=== PATIENT | female | born 1990 | race Two or more races ===

== ENCOUNTER 2018-05-12 07:21 | Emergency (ER) | payer MEDICAID ==
[~2018-05-12] VITALS: Ht 162.6 cm; Wt 65.8 kg
[2018-05-12 07:23] VITALS: BP 105/73
[2018-05-12] MEDS ORDERED: IBUPROFEN600 MG ORAL (07:48)
[2018-05-12] MEDS ORDERED: CYCLOBENZAPRINE10 MG ORAL (07:48)
[2018-05-12] MEDS ORDERED: Cyclobenzaprine 10mg Tab ORAL ONE (08:00)
[2018-05-12] MEDS ORDERED: Ketorolac 60mg Inj IM ONE (08:00)
--- NOTE | 2018-05-12 08:03 | Emergency Room Report ---
History of Present Illness General Chief Complaint: Neck Pain Source: Patient Present Illness HPI Patient is a 28-year-old female presented after increased right-sided neck pain. Patient denies recent trauma. She reports having acute onset of discomfort which began after waking up. Pain was posterior to the right side of the neck. She denies any severe headache. She denies any numbness or weakness. She denies any vertigo sensation. Patient reports of increased pain with right lateral rotation as well as neck flexion. She denies prior episodes. She denies any previous sore throat. Allergies: Coded Allergies: No Known Allergies (Unverified , 05/12/18) Patient History Past Medical History: see triage record Now: No Reviewed Nursing Documentation: PMH: Agreed; PSxH: Agreed Nursing Documentation-PMH Past Medical History: No Stated History Review of Systems All Other Systems: negative except mentioned in HPI Physical Exam Vital Signs Date Time Temp Pulse Resp B/P (MAP) Pulse Ox O2 Delivery O2 Flow Rate FiO2 05/12/18 07:23 98.2 79 17 105/73 99 Room Air General Appearance: well appearing, no apparent distress, alert, GCS 15, non- toxic Head: normocephalic, atraumatic ENT: hearing grossly normal, normal voice Neck: supple, other, tender - tender posterior laterally Respiratory: no respiratory distress, speaking full sentences Cardiovascular #1: normal inspection, normal peripheral pulses, regular rate, rhythm Musculoskeletal: normal inspection, digits/nails normal Neurologic: normal inspection, alert, oriented x3, responsive, cleaner and trimmer III-XII nml as tested, normal gait Psychiatric: mood/affect normal Skin: no rash Medical Decision Making Diagnostic Impression: Primary Impression: Torticollis ER Course Patient presented for neck pain. Differential diagnosis included torticollis, vertebral artery dissection, myocardial infarction, cervical fracture, arthritis , spondylolithises. On exam patient has a benign exam and does not appear to require any laboratory testing at this time. Patient is advised to follow up with primary care doctor in 1-2 days. Patient is advised to return if any worsening condition or if any changes in status that are concerning. This report is dictated with [employer] fitness sales associate software which may occasionally lead to discrepancies related to use of this software. Labs Test 05/12/18 07:49 Last Vital Signs Date Time Temp Pulse Resp B/P (MAP) Pulse Ox O2 Delivery O2 Flow Rate FiO2 05/12/18 07:23 98.2 79 17 105/73 99 Room Air Status: improved Disposition: HOME, SELF-CARE Condition: Stable Scripts Cyclobenzaprine Hcl* (FLEXERIL*) 10 Mg Tablet 10 MG ORAL TID PRN for Muscle Spasm, #20 TAB Prov: Srinivasan Ospina MD 05/12/18 Ibuprofen* (MOTRIN*) 600 Mg Tablet 600 MG ORAL Q8H PRN for For Pain, #30 TAB 0 Refills Prov: Srinivasan Ospina MD 05/12/18 Departure Forms: Return to Work Return to Work in (Days): 4 Patient Instructions: Acute Torticollis Srinivasan Ospina MD May 12, 2018 08:03
[2018-05-12 08:36] VITALS: BP 114/68
--- NOTE | 2018-05-12 08:55 | Diagnostic Imaging Report ---
. Indication: Pain Technique: XRAY Neck Soft Tissue Comparison: None Findings: There is mild straightening of the cervical lordosis without radiographic evidence to suggest spondylolisthesis. No acute fractures identified. No abnormal prevertebral soft tissue thickening. Imaged airway appears patent. No radiopaque foreign body. Imaged lung apices clear. Impression: Unremarkable radiographic examination of the soft tissues the neck.
== END 2018-05-12 08:36 | disposition home or self-care (01) ==
LOC: EMR 08:11
DX: M43.6 Torticollis (principal)
CPT/HCPCS: 70360; 81025; 96372; 99283

== ENCOUNTER 2018-08-01 09:12 | Emergency (ER) | payer MEDICAID ==
[~2018-08-01] VITALS: Ht 160 cm; Wt 63.5 kg
[~2018-08-01 09:12] MED LIST: CYCLOBENZAPRINE10 MG ORAL; IBUPROFEN600 MG ORAL
[2018-08-01] MEDS ORDERED: NKM (09:22)
--- NOTE | 2018-08-01 09:22 | NUR ---
ED Nurse Note: mask provided.
[2018-08-01 09:26] VITALS: BP 117/71
--- NOTE | 2018-08-01 09:30 | Emergency Room Report ---
History of Present Illness General Chief Complaint: Flu Like Symptoms Source: Patient Present Illness HPI Patient is a 28-year-old female presented after increased cough and sore throat for 2 days. Patient reports having onset of symptoms on Thursday. Patient reported having increased body aches and chills. She had nonproductive cough. Patient had been having increased sore throat with difficulty swallowing. She denies any past medical history. She denies vomiting. She reports having fever and chills. She reports having increased lightheadedness. Allergies: Coded Allergies: No Known Allergies (Unverified , 05/12/18) Patient History Past Medical History: see triage record Last Menstrual Period: 07/30/2018 Reviewed Nursing Documentation: PMH: Agreed; PSxH: Agreed Nursing Documentation-PMH Past Medical History: No Stated History Review of Systems All Other Systems: negative except mentioned in HPI Physical Exam Vital Signs Date Time Temp Pulse Resp B/P (MAP) Pulse Ox O2 Delivery O2 Flow Rate FiO2 08/01/18 09:19 99.7 138 20 117/71 94 Room Air Sp02 EP Interpretation: reviewed, normal General Appearance: normal inspection, well appearing, no apparent distress, alert, GCS 15 Head: atraumatic ENT: normal ENT inspection, hearing grossly normal, normal voice Neck: normal inspection, full range of motion, supple, no bony tend Respiratory: normal inspection, lungs clear, normal breath sounds, no respiratory distress, no retraction, no wheezing Cardiovascular #1: regular rate, rhythm, no edema Gastrointestinal: normal inspection, normal bowel sounds, non tender, soft, no guarding, no hernia Genitourinary: no CVA tenderness Musculoskeletal: normal inspection, back normal, normal range of motion Neurologic: normal inspection, alert, oriented x3, responsive, rental sales agent III-XII nml as tested, speech normal Psychiatric: normal inspection, judgement/insight normal, mood/affect normal Skin: normal inspection, normal color, no rash Medical Decision Making Diagnostic Impression: Primary Impression: Influenza A ER Course Patient presented for sore throat. Differential diagnosis include was not limited to influenza, sepsis, abscess, among others. Because of complexity of patient's case laboratory testing and imaging studies were ordered. Patient was noted to be tachycardic as well as having a nonproductive cough. Patient was started on IV fluids. Influenza swab was sent.Influenza study was noted to be positive for influenza A. Patient was given Tamiflu as well as ibuprofen in the emergency department. She started on IV fluids. Patient reported having improvement in her symptoms. Patient appears to be stable for outpatient management. At the time of discharge patient was noted to have normal oxygen saturation did not have any respiratory distress. She stated that she felt better. Patient was discharged home with prescription for Tamiflu as well as for Naprosyn. She is advised to follow-up with primary care physician for recheck and to return if she had any worsening of condition. Labs Test 08/01/18 09:30 08/01/18 10:05 White Blood Count 8.8 K/UL (4.8-10.8) Red Blood Count 5.40 M/UL (4.20-5.40) Hemoglobin 14.3 G/DL (12.0-16.0) Hematocrit 44.1 % (37.0-47.0) Mean Corpuscular Volume 82 FL (80-99) Mean Corpuscular Hemoglobin 26.5 PG (27.0-31.0) Mean Corpuscular Hemoglobin Concent 32.5 G/DL (32.0-36.0) Red Cell Distribution Width 13.9 % (11.6-14.8) Platelet Count 208 K/UL (150-450) Mean Platelet Volume 6.9 FL (6.5-10.1) Neutrophils (%) (Auto) % (45.0-75.0) Lymphocytes (%) (Auto) % (20.0-45.0) Monocytes (%) (Auto) % (1.0-10.0) Eosinophils (%) (Auto) % (0.0-3.0) Basophils (%) (Auto) % (0.0-2.0) Differential Total Cells Counted 100 Neutrophils % (Manual) 88 % (45-75) Lymphocytes % (Manual) 8 % (20-45) Monocytes % (Manual) 4 % (1-10) Eosinophils % (Manual) 0 % (0-3) Basophils % (Manual) 0 % (0-2) Band Neutrophils 0 % (0-8) Platelet Estimate Adequate Platelet Morphology Normal Red Blood Cell Morphology Normal Sodium Level 136 MMOL/L (136-145) Potassium Level 3.4 MMOL/L (3.5-5.1) Chloride Level 101 MMOL/L (98-107) Carbon Dioxide Level 25 MMOL/L (21-32) Anion Gap 10 mmol/L (5-15) Blood Urea Nitrogen 11 mg/dL (7-18) Creatinine 0.9 MG/DL (0.55-1.30) Estimat Glomerular Filtration Rate > 60 mL/min (>60) Glucose Level 122 MG/DL (74-106) Lactic Acid Level 1.70 mmol/L (0.4-2.0) Calcium Level 8.7 MG/DL (8.5-10.1) Total Bilirubin 0.3 MG/DL (0.2-1.0) Aspartate Amino Transf (AST/SGOT) 19 U/L (15-37) Alanine Aminotransferase (ALT/SGPT) 29 U/L (12-78) Alkaline Phosphatase 75 U/L (46-116) Total Creatine Kinase 45 U/L (26-308) Creatine Kinase MB < 0.5 NG/ML (0.0-3.6) Creatine Kinase MB Relative Index 1.1 Troponin I 0.000 ng/mL (0.000-0.056) Total Protein 8.0 G/DL (6.4-8.2) Albumin 4.3 G/DL (3.4-5.0) Globulin 3.7 g/dL Albumin/Globulin Ratio 1.2 (1.0-2.7) Urine Color Yellow Urine Appearance Clear Urine pH 5 (4.5-8.0) Urine Specific [place] 1.015 (1.005-1.035) Urine Protein 1+ (NEGATIVE) Urine Glucose (UA) Negative (NEGATIVE) Urine Ketones 3+ (NEGATIVE) Urine Blood 5+ (NEGATIVE) Urine Nitrite Negative (NEGATIVE) Urine Bilirubin Negative (NEGATIVE) Urine Urobilinogen Normal MG/DL (0.0-1.0) Urine Leukocyte Esterase 1+ (NEGATIVE) Urine RBC 2-4 /HPF (0 - 2) Urine WBC 0-2 /HPF (0 - 2) Urine Squamous Epithelial Cells Few /LPF (NONE/OCC) Urine Bacteria Few /HPF (NONE) Urine Mucus Few /LPF (NONE/OCC) EKG Diagnostic Results Rate: tachycardiac - 130 Rhythm: NSR ST Segments: no acute changes ASA given to the pt in ED: No Rhythm Strip Diag. Results EP Interpretation: yes Rhythm: no PVC's, no ectopy, other - sinus tachycardia Last Vital Signs Date Time Temp Pulse Resp B/P (MAP) Pulse Ox O2 Delivery O2 Flow Rate FiO2 08/01/18 09:19 99.7 138 20 117/71 94 Room Air Status: improved Disposition: HOME, SELF-CARE Condition: Stable Scripts Naproxen* (NAPROXEN*) 375 Mg Tablet.dr 375 MG ORAL TWICE A DAY, #14 TAB Prov: Srinivasan Ospina MD 08/01/18 Oseltamivir Phosphate (Tamiflu) 75 Mg Capsule 75 MG ORAL TWICE A DAY, #9 CAP Prov: Srinivasan Ospina MD 08/01/18 Srinivasan Ospina MD Aug 01, 2018 09:30
[2018-08-01] MEDS ORDERED: Lidocaine 2% Visc 15ml soln ORAL ONE (09:45)
[2018-08-01] MEDS ORDERED: Acetaminophen 500mg (ES) tab ORAL ONE (09:45)
--- NOTE | 2018-08-01 09:49 | NUR ---
ED Nurse Note:pt. came with flu like symptoms, temp 99.7 HR 135, A/Ox4 ambulatory with steady gait, pt. was seen by ER MD, placed on cardiac exercise specialist, blood was sent to labs, given meds and IV fluids
[2018-08-01 09:56] LABS: HEMATOCRIT 44.1 % (37.0-47.0); HEMOGLOBIN 14.3 G/DL (12.0-16.0); MEAN CORPUSCULAR VOLUME 82 FL (80-99); PLATELET COUNT 208 K/UL (150-450); RED CELL DISTRIBUTION WIDTH 13.9 % (11.6-14.8); WHITE BLOOD COUNT 8.8 K/UL (4.8-10.8)
--- NOTE | 2018-08-01 10:09 | NUR ---
ED Nurse Note:urine sent to labs
[2018-08-01 10:12] LABS: ANION GAP 10 mmol/L (5-15); BLOOD UREA NITROGEN 11 mg/dL (7-18); CALCIUM 8.7 MG/DL (8.5-10.1); CARBON DIOXIDE 25 MMOL/L (21-32); CHLORIDE 101 MMOL/L (98-107); CREATININE 0.9 MG/DL (0.55-1.30); POTASSIUM 3.4 MMOL/L (3.5-5.1); SODIUM 136 MMOL/L (136-145)
--- NOTE | 2018-08-01 10:12 | Diagnostic Imaging Report ---
EXAM: XR Chest, 1 View CLINICAL HISTORY: Shortness of breath TECHNIQUE: Frontal view of the chest. COMPARISON: No relevant prior studies available. FINDINGS: Lungs: Subsegmental atelectasis versus infiltrate in the right lung base. The lungs otherwise appear clear. Pleural space: Unremarkable. The costophrenic angles are sharp. No visible pneumothorax. Heart: Unremarkable. No cardiomegaly. Mediastinum: Unremarkable. Bones/joints: Unremarkable. Tubes, lines and devices: EKG lead overlies the right thorax. IMPRESSION: Subsegmental atelectasis versus infiltrate in the right lung base.
[2018-08-01 10:15] LABS: APPEARANCE,URINE CLEAR; BILIRUBIN, URINE NEGATIVE (NEGATIVE); GLUCOSE, URINE (UA) NEGATIVE (NEGATIVE); KETONES,URINE 3+ (NEGATIVE); LEUKOCYTE ESTERASE ,URINE 1+ (NEGATIVE); NITRITE,URINE NEGATIVE (NEGATIVE); PH,URINE 5 (4.5-8.0); PROTEIN,URINE 1+ (NEGATIVE); UROBILINOGEN,URINE NORMAL MG/DL (0.0-1.0)
[2018-08-01] MEDS ORDERED: Oseltamivir 75mg cap ORAL SCH (10:15)
[2018-08-01 10:25] LABS: ALANINE AMINOTRANSFERASE 29 U/L (12-78); ALBUMIN 4.3 G/DL (3.4-5.0); ALBUMIN/GLOBULIN RATIO 1.2 (1.0-2.7); ALKALINE PHOSPHATASE 75 U/L (46-116); ASPARTATE AMINO TRANSFERASE 19 U/L (15-37); BILIRUBIN,TOTAL 0.3 MG/DL (0.2-1.0); CKMB < 0.5 NG/ML (0.0-3.6); CREATINE KINASE 45 U/L (26-308)
[2018-08-01 10:33] VITALS: BP 115/70
[2018-08-01 10:43] LABS: COLOR,URINE YELLOW
--- NOTE | 2018-08-01 10:52 | NUR ---
ED Nurse Note:temp was rechecked, second litr of fluids given , continue monitor
[2018-08-01 11:42] VITALS: BP 113/69
--- NOTE | 2018-08-01 11:43 | NUR ---
ED Nurse Note:rechecked temp-99.2 notified
--- NOTE | 2018-08-01 12:58 | NUR ---
ED Nurse Note: PT. PROVIDED SANDWICH AND JUICE
[2018-08-01] MEDS ORDERED: TAMIFLU75 MG ORAL (13:09)
[2018-08-01] MEDS ORDERED: NAPROXEN375 M2 ORAL (13:09)
[2018-08-01 13:44] VITALS: BP 106/72
--- NOTE | 2018-08-01 13:45 | NUR ---
ER DISCHARGE NOTE: Patient is cleared to be discharged per ERMD, pt is aox4, on room air, with stable vital signs. pt was given dc and prescription instructions, pt was able to verbalize understanding, pt id band and iv site removed without complications. pt is able to ambulate with steady gait. pt took all belongings.
[2018-08-01 14:05] VITALS: BP 106/72
[2018-08-02] MEDS ORDERED: AUGMENTIN 875-1 EAC1 ORAL (21:35)
[2018-08-02] MEDS ORDERED: ZOFRAN4 M1 ORAL (21:35)
[2018-08-02] MEDS ORDERED: IBUPROFEN600 MG ORAL (21:35)
== END 2018-08-01 14:07 | disposition home or self-care (01) ==
LOC: EMR 09:56
DX: J09.X2 Influenza due to identified novel influenza A virus with other respiratory manifestations (principal); R00.0 Tachycardia, unspecified
CPT/HCPCS: 36415; 71045; 80053; 81003; 82550; 82553; 83605; 84484; 85007; 85025; 86710; 87040; 93005; 96360; 99284; J7040; J8499

== ENCOUNTER 2018-08-02 20:23 | Emergency (ER) | payer MEDICAID ==
[~2018-08-02] VITALS: Ht 165.1 cm; Wt 54.4 kg
[~2018-08-02 20:23] MED LIST changes: +NAPROXEN375 M2 ORAL; +NKM; +TAMIFLU75 MG ORAL
--- NOTE | 2018-08-02 21:12 | NUR ---
ED Nurse Note: Pt came in from home due to sorethroat 5/10 ginny and difficulty breathing since Thursday07/31/2018. HR 112 upon arrival SAT 95% RA, ERMD aware. Aox4, other VSS. Will cont to monitor.
[2018-08-02] MEDS ORDERED: Ketorolac 30mg Inj IV ONE (21:15)
[2018-08-02 21:34] VITALS: BP 115/72
[2018-08-02] MEDS ORDERED: ZOFRAN4 M1 ORAL (21:35)
[2018-08-02] MEDS ORDERED: AUGMENTIN 875-1 EAC1 ORAL (21:35)
[2018-08-02] MEDS ORDERED: IBUPROFEN600 MG ORAL (21:35)
[2018-08-02 21:45] VITALS: BP 115/72
[2018-08-02] MEDS ORDERED: Augmentin 875mg Tab ORAL ONE (21:45)
[2018-08-02] MEDS ORDERED: Ketorolac 60mg Inj IM ONE (21:45)
--- NOTE | 2018-08-02 21:45 | NUR ---
ER DISCHARGE NOTE: Patient is cleared to be discharged per ERMD, pt is aox4, on room air, with stable vital signs. pt was given dc and prescription instructions, pt was able to verbalize understanding, pt id band removed. pt is able to ambulate with steady gait. pt took all belongings.
--- NOTE | 2018-08-03 02:35 | Emergency Room Report ---
History of Present Illness General Chief Complaint: Flu Like Symptoms Source: Patient Present Illness HPI Patient was here with daughter who is being seen for right conjunctivitis Patient was here just recently diagnosed with influenza a Patient reported ongoing throat discomfort pain with swallowing patient also complaining of increased nausea and vomiting Denies any posterior neck pain denies any photophobia Denies any diarrhea Allergies: Coded Allergies: No Known Allergies (Unverified , 05/12/18) Patient History Past Medical History: see triage record Pertinent Family History: none Last Menstrual Period: 07/31/18 Now: No : 2 Para: 1 Reviewed Nursing Documentation: PMH: Agreed; PSxH: Agreed Nursing Documentation-PMH Past Medical History: No History, Except For Review of Systems All Other Systems: negative except mentioned in HPI Physical Exam Vital Signs Date Time Temp Pulse Resp B/P (MAP) Pulse Ox O2 Delivery O2 Flow Rate FiO2 08/02/18 20:29 98.2 118 22 113/67 95 Room Air Sp02 EP Interpretation: reviewed, normal General Appearance: no apparent distress Head: normocephalic, atraumatic Eyes: bilateral eye PERRL, bilateral eye EOMI ENT: no angioedema, normal voice, pharyngeal erythema Neck: supple, no meningismus Respiratory: lungs clear, no retraction, no accessory muscle use Cardiovascular #1: regular rate, rhythm Gastrointestinal: non tender, soft Genitourinary: no CVA tenderness Musculoskeletal: normal inspection Neurologic: alert, oriented x3 Psychiatric: normal inspection Skin: normal color Lymphatic: no adenopathy Medical Decision Making Diagnostic Impression: Primary Impression: pharyngitis Additional Impression: influenza ER Course Patient did not appear septic or toxic However given her discomforts given the return visit Given the patient's complaints of vomiting IV hydration along with pain medication were ordered and recommendation for further inpatient evaluation Patient reports that she needs to be home with her daughter and does not want to have the further IV intervention in the ER She was provided with pain medication given the increased erythema of the throat I feel that there is likely a secondary bacterial infection as well Patient added with antibiotics and will have close outpatient follow-up Last Vital Signs Date Time Temp Pulse Resp B/P (MAP) Pulse Ox O2 Delivery O2 Flow Rate FiO2 08/02/18 21:45 98.2 87 20 115/72 96 Room Air Status: improved Disposition: HOME, SELF-CARE Condition: Improved Scripts Ondansetron (Zofran) 4 Mg Tablet 4 MG ORAL Q8HR PRN for Nausea & Vomiting, #12 TAB Prov: Mandeep Rubio DO 08/02/18 Amoxicillin/Potassium Clav 875-125* (AUGMENTIN 875-125 TABLET*) 1 Each Tablet 1 TAB ORAL TWICE A DAY, #14 TAB Prov: Mandeep Rubio DO 08/02/18 Ibuprofen* (MOTRIN*) 600 Mg Tablet 600 MG ORAL Q8H PRN for For Pain, #20 TAB 0 Refills Prov: Mandeep Rubio DO 08/02/18 Referrals: NOT CHOSEN IPA/MD,REFERRING (PCP) Patient Instructions: Influenza, Adult, [id number], Pharyngitis, [id number] Additional Instructions: Patient is provided with the discharge instructions notified to follow up with primary doctor in the next 2-3 days otherwise return to the er with any worsening symptoms. Please note that this report is being documented using [employer] technology. This can lead to erroneous entry secondary to incorrect interpretation by the dictating instrument. Mandeep Rubio DO Aug 03, 2018 02:35
== END 2018-08-02 21:45 | disposition home or self-care (01) ==
LOC: EMR 21:10
DX: J02.9 Acute pharyngitis, unspecified (principal); J11.1 Influenza due to unidentified influenza virus with other respiratory manifestations; R11.10 Vomiting, unspecified
CPT/HCPCS: 96372; 99283

== ENCOUNTER 2020-02-03 15:27 | Emergency (ER) | payer MEDICAID ==
[~2020-02-03] VITALS: Ht 160 cm; Wt 68.0 kg
[~2020-02-03 15:27] MED LIST changes: +AUGMENTIN 875-1 EAC1 ORAL; +ZOFRAN4 M1 ORAL
[2020-02-03 15:50] VITALS: BP 118/74
[2020-02-03 16:03] LABS: APPEARANCE,URINE CLOUDY; BILIRUBIN, URINE NEGATIVE (NEGATIVE); COLOR,URINE PALE YELLOW; GLUCOSE, URINE (UA) NEGATIVE (NEGATIVE); KETONES,URINE NEGATIVE (NEGATIVE); LEUKOCYTE ESTERASE ,URINE 3+ (NEGATIVE); NITRITE,URINE NEGATIVE (NEGATIVE); PH,URINE 6 (4.5-8.0); PROTEIN,URINE 2+ (NEGATIVE); UROBILINOGEN,URINE NORMAL MG/DL (0.0-1.0)
[2020-02-03] MEDS ORDERED: Phenazopyridine 200mg tab ORAL ONE (16:45)
--- NOTE | 2020-02-03 16:50 | Emergency Room Report ---
History of Present Illness General Chief Complaint: Female Urogenital Problems Source: Patient Present Illness HPI 29 YO Female presents to the ED c/o 01/25 in severity lower abdominal pain with hematuria and dysuria x 3 days. Pt. also reports several ingrown hairs in the genital region x 1 week. Pt. denies fevers or chills she denies low back pain. She denies suspicion of . She denies nausea, vomiting, constipation or diarrhea. She denies suspicion of STI. Allergies: Coded Allergies: No Known Allergies (Unverified , 05/12/18) COVID-19 Screening Contact w/high risk pt: No Experienced COVID-19 symptoms?: No COVID-19 Testing performed SOCIAL SCIENCE TEACHER: No Patient History Past Medical History: see triage record Past Surgical History: none Pertinent Family History: none Last Menstrual Period: 01/18 Now: No Reviewed Nursing Documentation: PMH: Agreed; PSxH: Agreed Nursing Documentation-PMH Past Medical History: No Stated History Hx Cardiac Problems: No Hx Hypertension: No Hx Pacemaker: No Hx Asthma: No Hx COPD: No Hx Diabetes: No Hx Cancer: No Hx Gastrointestinal Problems: No Hx Dialysis: No History Of Psychiatric Problem: No Hx Neurological Problems: No Hx Cerebrovascular Accident: No Hx Seizures: No Review of Systems All Other Systems: negative except mentioned in HPI Physical Exam Vital Signs Date Time Temp Pulse Resp B/P (MAP) Pulse Ox O2 Delivery O2 Flow Rate FiO2 02/03/20 15:33 98.1 86 16 118/74 (89) 98 Room Air Sp02 EP Interpretation: reviewed, normal General Appearance: no apparent distress, alert, GCS 15, non-toxic Head: normocephalic, atraumatic Eyes: bilateral eye normal inspection, bilateral eye PERRL ENT: hearing grossly normal, normal voice Neck: full range of motion Respiratory: lungs clear, normal breath sounds, speaking full sentences Cardiovascular #1: regular rate, rhythm Gastrointestinal: normal bowel sounds, non tender, soft, non-distended, no guarding Rectal: deferred Genitourinary: normal inspection, no CVA tenderness, other - three hair follicles that are inflammed. there is mild surrounding erythema , not a lot of warmth. No LAD Musculoskeletal: back normal, normal range of motion, gait/station normal, non- tender Neurologic: alert, motor strength/tone normal, oriented x3, sensory intact, responsive, speech normal Psychiatric: judgement/insight normal Skin: other - three hair follicles that are inflammed. there is mild surrounding erythema , not a lot of warmth. Lymphatic: no adenopathy Medical Decision Making PA Attestation Dr. Peters is my supervising Physician whom patient management has been discussed with. Diagnostic Impression: Primary Impression: UTI (urinary tract infection) Qualified Codes: N30.01 - Acute cystitis with hematuria Additional Impression: Ingrowing hair ER Course 29 YO Female presents to the ED c/o 01/25 in severity lower abdominal pain with hematuria and dysuria x 3 days. Pt. also reports several ingrown hairs in the genital region x 1 week. Pt. denies fevers or chills she denies low back pain. She denies suspicion of . She denies nausea, vomiting, constipation or diarrhea. She denies suspicion of STI. Ddx considered but are not limited to UTi , Pyelo, STI, Stone, Cystitis Vital signs: are WNL, pt. is afebrile H&PE are most consistent with UTI ORDERS: - UA labs are attached -- moderate bacteria and increase in inflammatory markers. - Urine HCG: Negative ED INTERVENTIONS: -Pyridium PO DISCHARGE: At this time pt. is stable for d/c to home. Will provide printed p atient care instructions, and any necessary prescriptions. Care plan and follow up instructions have been discussed with the patient prior to discharge. Labs Test 02/03/20 15:40 Urine Color Pale yellow Urine Appearance Cloudy Urine pH 6 (4.5-8.0) Urine Specific [place] 1.020 (1.005-1.035) Urine Protein 2+ (NEGATIVE) Urine Glucose (UA) Negative (NEGATIVE) Urine Ketones Negative (NEGATIVE) Urine Blood 4+ (NEGATIVE) Urine Nitrite Negative (NEGATIVE) Urine Bilirubin Negative (NEGATIVE) Urine Urobilinogen Normal MG/DL (0.0-1.0) Urine Leukocyte Esterase 3+ (NEGATIVE) Urine RBC Tntc /HPF (0 - 2) Urine WBC Tntc /HPF (0 - 2) Urine Squamous Epithelial Cells Moderate /LPF (NONE/OCC) Urine Bacteria Many /HPF (NONE) Urine HCG, Qualitative Negative (NEGATIVE) Last Vital Signs Date Time Temp Pulse Resp B/P (MAP) Pulse Ox O2 Delivery O2 Flow Rate FiO2 02/03/20 15:50 98.1 75 16 118/74 98 Room Air Disposition: HOME, SELF-CARE Condition: Stable Scripts Phenazopyridine Hcl* (PYRIDIUM*) 100 Mg Tablet 100 MG ORAL THREE TIMES A DAY for 3 Days, #9 TAB Prov: Brenda Lemon 02/03/20 Mupirocin* (MUPIROCIN*) 22 Gm Oint...g. 1 APPLIC TOPIC THREE TIMES A DAY, #22 GM Prov: Brenda Lemon 02/03/20 Cephalexin* (KEFLEX*) 500 Mg Capsule 500 MG ORAL EVERY 12 HOURS for 7 Days, #14 CAP 0 Refills Prov: Brenda Lemon 02/03/20 Referrals: NON PHYSICIAN (PCP) Patient Instructions: Ingrown Hair, Urinary Tract Infection Additional Instructions: Take medications as directed. Follow up with a Primary Care Provider in 3-5 days, even if your symptoms have resolved. --Please review list of primary care clinics, if you do not already have a primary care provider Return sooner to ED if new symptoms occur, or current symptoms become worse. - Please note that this Emergency Department Report was dictated using [employer] export clerk technology software, occasionally this can lead to erroneous entry secondary to interpretation by the dictation equipment. Brenda Lemon Feb 03, 2020 16:50
[2020-02-03] MEDS ORDERED: CEPHALEXIN500 MG ORAL (16:52)
[2020-02-03] MEDS ORDERED: MUPIROCIN22 GM TOPIC (16:52)
[2020-02-03] MEDS ORDERED: PHENAZOPYRIDIN100 MG ORAL (16:52)
[2020-02-03 16:55] VITALS: BP 118/74
== END 2020-02-03 17:05 | disposition home or self-care (01) ==
LOC: EMR 15:57
DX: N30.01 Acute cystitis with hematuria (principal); L73.1 Pseudofolliculitis barbae
CPT/HCPCS: 81003; 81025; 87086; Z7502; 99283